=== PATIENT | female | born 1940 | race Caucasian/White ===

== ENCOUNTER → 2023-09-08 17:35 | Outpatient (REF) | payer OTHER, SELFPAY | LOC: PAVMRI 17:35 | PROVIDERS: ATTENDING PHYSICIAN Orthopaedic Surgery; FAMILY PHYSICIAN Family Medicine | DX: M25.561 Pain in right knee (principal); M25.562 Pain in left knee | CPT/HCPCS: 73721 ==

== ENCOUNTER → 2025-02-28 10:42 | Outpatient (REF) | payer OTHER, SELFPAY | LOC: RCS 10:42 | PROVIDERS: ATTENDING PHYSICIAN Internal Medicine Cardiovascular Disease; FAMILY PHYSICIAN Family Medicine | DX: I48.91 Unspecified atrial fibrillation (principal) | CPT/HCPCS: 93306 ==